=== PATIENT | female | born 1995 | race Caucasian/White ===

== ENCOUNTER 2016-10-28 00:53 | Emergency (ER) | payer SELFPAY | END 2016-10-28 01:50 | disposition left against medical advice (07) | LOC: EDMED 00:53 | DX: Z53.21 Procedure and treatment not carried out due to patient leaving prior to being seen by health care provider (principal) ==

== ENCOUNTER 2016-11-04 12:40 | Day surgery (SDC) | payer BC, SELFPAY ==
[2016-11-04 14:07] LABS: HCT-HEMATOCRIT 40.8 % (34.0-49.0); HGB-HEMOGLOBIN 14.1 gm/dl (12.0-15.5); MCV (MEAN CELL VOLUME) 86.3 fl (82.0-96.0); RED CELL DISTRIBUTION WIDTH 12.8 % (12.4-16.4)
[2016-11-04] MEDS ORDERED: IMODIUM A-D2 M4 PO (14:20)
== END 2016-11-04 17:00 ==
LOC: WSU 12:40 → SHSB 12:41 → PACU 15:34 → SHSB 16:05
PROVIDERS: Obstetrics & Gynecology
PROC: 10D17ZZ Extraction of Products of Conception, Retained, Via Natural or Artificial Opening (ICD-10-PCS; principal; 2016-11-04)
DX: O02.1 Missed abortion (principal); Z98.890 Other specified postprocedural states